=== PATIENT | female | born 1995 | race Two or more races ===

== ENCOUNTER 2024-04-24 18:00 | Inpatient (IN) | payer BC, MEDICAID ==
[2024-04-24] MEDS ORDERED: hydrALAZINE 20 MG/ML VIAL SLOW IVP PRN (18:44)
[2024-04-24] MEDS ORDERED: Diphenoxylate HCl/Atropine Tablet PO PRN (18:44)
[2024-04-24] MEDS ORDERED: Ibuprofen 800 MG TAB PO PRN (18:44)
[2024-04-24] MEDS ORDERED: Lidocaine 1% (PF) 30 ML VIAL SC PRN (18:44)
[2024-04-24] MEDS ORDERED: Tranexamic Acid 1,000 MG/10 ML VIAL IVP PRN (18:44)
[2024-04-24] MEDS ORDERED: Methylergonovine 0.2 MG/ML VIAL IM PRN (18:44)
[2024-04-24] MEDS ORDERED: Ondansetron PF 4 MG/2 ML Vial IVP PRN (18:44)
[2024-04-24] MEDS ORDERED: Acetaminophen 500 MG TAB PO PRN (18:44)
[2024-04-24] MEDS ORDERED: Promethazine HCl 25 MG/ML VIAL IM PRN (18:44)
[2024-04-24] MEDS ORDERED: Carboprost 250 MCG/ML AMP IM PRN (18:44)
[2024-04-24] MEDS ORDERED: Misoprostol 200 MCG TAB PR PRN (18:44)
[2024-04-24] MEDS ORDERED: Oxytocin 30 units/NS 500 ML 500 ML IV SCH (18:45)
[2024-04-24] MEDS: Lactated Ringer's 1,000 ML IV SCH (21:08)
[2024-04-24 21:23] VITALS: BMI 32.8
[2024-04-24 21:56] LABS: Hemoglobin 12.3 g/dL (12.0-15.5); Mean Corpuscular HGB CONC 34.2 g/dL (32.0-36.0); Mean Corpuscular Hemoglobin 28.5 pg (27.0-33.0); Mean Corpuscular Volume 83.3 fL (81.6-98.3); Mean Platelet Volume 11.2 fL (7.4-10.4); Platelet Count 222 10x3/uL (150-450); RBC Distribution Width 13.2 % (11.5-14.5); Red Blood Cell (RBC) Count 4.32 10x6/uL (3.90-5.03); White Blood Cell (WBC) Count 6.6 10x3/uL (3.5-10.5)
[2024-04-24] MEDS: Misoprostol 100 MCG TAB VAG SCH (22:03)
[2024-04-24 22:26] LABS: HBsAg Index 0.18 S/CO (0-0.99); Hep B Surf Ag - L&D Non-Reactive S/CO (NonReactive); Syphilis Antibody Nonreactive (Nonreactive); Syphilis Antibody Index 0.06 S/CO (<1.00 Non-Reactive)
[2024-04-25] MEDS: Misoprostol 100 MCG TAB PO SCH (13:30)
[2024-04-25] MEDS ORDERED: fentaNYL 50 mcg/mL 1 mL Vial SLOW IVP PRN (16:37)
[2024-04-25] MEDS ORDERED: Ondansetron PF 4 MG/2 ML Vial IVP PRN (16:54)
[2024-04-25] MEDS ORDERED: Naloxone HCl 0.4 mg/ml Vial IVP PRN ×2 (16:54)
[2024-04-25] MEDS ORDERED: diphenhydrAMINE 50 MG/ML VIAL IVP PRN (16:54)
[2024-04-25] MEDS ORDERED: ePHEDrine Sulfate 50 MG/10 ML VIAL SLOW IVP PRN (16:54)
[2024-04-25] MEDS ORDERED: Promethazine HCl 25 MG/ML VIAL IM PRN (16:54)
[2024-04-25] MEDS ORDERED: Moisturizing Cream (Eucerin) 113 GM JAR TOP PRN (16:54)
[2024-04-25] MEDS ORDERED: Lactated Ringer's 500 ML IV PRN (16:54)
[2024-04-25] MEDS ORDERED: Communication Order-Pharmacy FS SCH (17:00)
[2024-04-25] MEDS: fentaNYL/Ropivacaine Epidural 100 ML ONE (17:08)
[2024-04-25] MEDS: Oxytocin 30 units/NS 500 ML 500 ML IV SCH (18:30)
[2024-04-25] MEDS: fentaNYL 2 mcg/Ropivacaine 0.2% Epidural 100 ML CADD EPIDURAL SCH (21:57)
[2024-04-26] MEDS: Ampicillin 2 GM in Sodium Chloride 0.9% 100 ML IVPB SCH (00:22)
[2024-04-26] MEDS: SODIUM CHLORIDE IVPB SCH (01:13)
[2024-04-26] MEDS: GENTAMICIN IVPB SCH (01:13)
[2024-04-26] MEDS: ADMIXTURE FEE IVPB SCH (01:13)
[2024-04-26] MEDS: Acetaminophen 500 MG TAB PO PRN (01:13)
[2024-04-26] MEDS ORDERED: Boostrix 0.5 ML (Tdap) VIAL (>/=7 yrs of age) IM ONE (01:53)
[2024-04-26] MEDS ORDERED: Lanolin Ointment 7 GM TUBE TOP PRN (01:53)
[2024-04-26] MEDS ORDERED: Milk Of Magnesia 30 ML UDCUP PO PRN (01:53)
[2024-04-26] MEDS ORDERED: Bisacodyl 10 MG SUPP PR PRN (01:53)
[2024-04-26] MEDS ORDERED: hydrALAZINE 20 MG/ML VIAL SLOW IVP PRN (01:53)
[2024-04-26 03:20] LABS: Hematocrit 33.3 % (34.9-44.5)
[2024-04-26] MEDS: Ibuprofen 800 MG TAB PO SCH (04:49)
[2024-04-26] MEDS: Ampicillin 2 GM VIAL ONE (04:57)
[2024-04-26] MEDS: Benzocaine-Menthol 82.5 ML CAN TOP PRN (05:26)
[2024-04-26] MEDS: Famotidine 20 MG TAB PO SCH (05:34)
[2024-04-26] MEDS: Ferrous Sulfate 325 MG TAB PO SCH (07:43)
[2024-04-26] MEDS: Prenatal Vitamin 1 TAB PO SCH (08:57)
[2024-04-26] MEDS: Docusate 100 MG CAP PO SCH (08:57)
[2024-04-26] MEDS: Acetaminophen 325 MG TAB PO PRN (08:57)
[2024-04-26] MEDS ORDERED: Furosemide 20 MG in Sodium Chloride 0.9% 90 ML IVPB SCH (12:30)
[2024-04-26 13:13] LABS: Hematocrit 34.6 % (34.9-44.5); Hemoglobin 11.1 g/dL (12.0-15.5); Mean Corpuscular HGB CONC 32.1 g/dL (32.0-36.0); Mean Corpuscular Hemoglobin 28.7 pg (27.0-33.0); Mean Corpuscular Volume 89.4 fL (81.6-98.3); Mean Platelet Volume 11.5 fL (7.4-10.4); Platelet Count 209 10x3/uL (150-450); RBC Distribution Width 14.2 % (11.5-14.5); Red Blood Cell (RBC) Count 3.87 10x6/uL (3.90-5.03); White Blood Cell (WBC) Count 16.5 10x3/uL (3.5-10.5)
[2024-04-26 13:45] LABS: Lymphocytes 7 % (21-51); Monocytes 8 % (0-10); Neutrophil 85 % (42-75)
[2024-04-26 13:46] LABS: Platelet Adequacy Comment Appears Adequate; RBC Morph Comment Within Normal Limits
[2024-04-26] MEDS: Furosemide 20 MG (2 mL) VIAL SLOW IVP SCH (13:46)
[2024-04-26] MEDS ORDERED: HYDROcodone/Acetaminophen 5/325 mg Tablet PO PRN (17:04)
[2024-04-26] MEDS ORDERED: Simethicone Chewable 80 MG TAB PO PRN (17:20)
[2024-04-26] MEDS ORDERED: Ampicillin/Sulbactam 3 GM in Sodium Chloride 0.9% 100 ML IVPB SCH ×3 (18:00→21:00)
[2024-04-26] MEDS: Acetaminophen 325 MG TAB PO SCH (21:20)
[2024-04-26] MEDS: Ampicillin/Sulbactam 3 GM in Sodium Chloride 0.9% 100 ML IVPB SCH (21:20)
[2024-04-27 03:31] LABS: #Basophils 0.03 10x3/uL (0.0-0.2); #Eosinphils 0.17 10x3/uL (0.0-0.5); #Monocytes 0.92 10x3/uL (0.0-1.1); #Neutrophils 9.76 10x3/uL (1.5-8.4); %Basophils 0.2 % (0.0-2.0); %Eosinophils 1.3 % (0.0-6.0); %Lymphocytes 14.2 % (18.0-47.0); %Monocytes 7.2 % (0.0-10.0); %Neutrophils 76.7 % (40.0-75.0); Hematocrit 24.5 % (34.9-44.5); Hemoglobin 8.5 g/dL (12.0-15.5); Mean Corpuscular HGB CONC 34.7 g/dL (32.0-36.0); Mean Corpuscular Volume 83.6 fL (81.6-98.3); Mean Platelet Volume 10.4 fL (7.4-10.4); Platelet Count 167 10x3/uL (150-450); RBC Distribution Width 13.6 % (11.5-14.5); Red Blood Cell (RBC) Count 2.93 10x6/uL (3.90-5.03); White Blood Cell (WBC) Count 12.7 10x3/uL (3.5-10.5)
[2024-04-27] MEDS: Ferrous Sulfate 325 MG TAB PO SCH (05:00)
[2024-04-27] MEDS: Polyethylene Glycol 3350 17 GM Packet PO SCH (08:33)
[2024-04-28 03:33] LABS: #Basophils 0.04 10x3/uL (0.0-0.2); #Eosinphils 0.24 10x3/uL (0.0-0.5); #Monocytes 0.56 10x3/uL (0.0-1.1); #Neutrophils 7.38 10x3/uL (1.5-8.4); %Basophils 0.4 % (0.0-2.0); %Eosinophils 2.4 % (0.0-6.0); %Lymphocytes 16.6 % (18.0-47.0); %Monocytes 5.6 % (0.0-10.0); %Neutrophils 74.5 % (40.0-75.0); Hematocrit 24.6 % (34.9-44.5); Hemoglobin 8.5 g/dL (12.0-15.5); Mean Corpuscular HGB CONC 34.6 g/dL (32.0-36.0); Mean Platelet Volume 10.8 fL (7.4-10.4); Platelet Count 188 10x3/uL (150-450); RBC Distribution Width 13.9 % (11.5-14.5); Red Blood Cell (RBC) Count 2.93 10x6/uL (3.90-5.03); White Blood Cell (WBC) Count 9.9 10x3/uL (3.5-10.5)
[2024-04-28] MEDS ORDERED: Acetaminophen 325 MG TAB PO SCH ×2 (06:00→12:00)
[2024-04-28 08:14] VITALS: BP 124/84; TEMP 98.2
[2024-04-28] MEDS: Amoxicillin/Potassium Clav 875 MG TAB PO SCH (09:48)
[2024-04-29] MEDS ORDERED: Ferrous Sulfate 325 MG TAB PO SCH (08:00)
== END 2024-04-28 13:13 | disposition home or self-care (01) | DRG 806 ==
LOC: CSHLD 19:50 → CSHPP 04-26 04:20
PROVIDERS: ADMIT Student in an Organized Health Care Education/Training Program; ATTEND Student in an Organized Health Care Education/Training Program
PROC: 3E0P7VZ Introduction of Hormone into Female Reproductive, Via Natural or Artificial Opening (ICD-10-PCS; 2024-04-24)
PROC: 10E0XZZ Delivery of Products of Conception, External Approach (ICD-10-PCS; principal; 2024-04-26)
PROC: 0KQM0ZZ Repair Perineum Muscle, Open Approach (ICD-10-PCS; 2024-04-26)
PROC: 3E033XZ Introduction of Vasopressor into Peripheral Vein, Percutaneous Approach (ICD-10-PCS; 2024-04-26)
DX: O24.425 Gestational diabetes mellitus in childbirth, controlled by oral hypoglycemic drugs (principal); O86.12 Endometritis following delivery; Z37.0 Single live birth; O86.4 Pyrexia of unknown origin following delivery; O76 Abnormality in fetal heart rate and rhythm complicating labor and delivery; O26.03 Excessive weight gain in pregnancy, third trimester; O66.0 Obstructed labor due to shoulder dystocia; Z3A.39 39 weeks gestation of pregnancy; D56.0 Alpha thalassemia; O70.1 Second degree perineal laceration during delivery; O69.81X0 Labor and delivery complicated by cord around neck, without compression, not applicable or unspecified; O77.0 Labor and delivery complicated by meconium in amniotic fluid
CPT/HCPCS: 36415; 36416; 85014; 85018; 85025; 85027; 86780; 86850; 86900; 86901; 87340; 88307; J0290; J0295; J1580; J1940; J2590; J3490; J7120